=== PATIENT | male | born 1955 | race Caucasian/White ===

== ENCOUNTER → 2016-12-25 | Outpatient (CLI) | payer BC ==
--- NOTE | 2016-12-26 06:23 | PAP/PSG TECHNICIAN REPORT ---
[facility] Abstract Checker Polysomnogram Report Study name: None Report date: 12/26/2016 Study date: 12/25/2016 Referring Physician: Aury Weiner PA-C Name: EMMETT DEL CASTILLO Interpreting Physician: Derrek Greco D.O. Date of : 1955 Abstract Checker: Loco Muñoz RPSFELICITY. Sex: Male Age: 61 StudyType: PSG PAP Weight: 245 lbs Height: 61 years, Height 6' 0" BMI: 33.22 Medications: PRILOSEC OTC 20 MG, DULOXETINE HCL 60 MG, LISINOPRIL 20-25 MG, METOPROLOL SUCCINATE ER 25 MG, ASPIRIN 81 MG, FISH OIL 1200 MG Patient History PATIENT HAD A SLEEP STUDY DONE IN FEBRUARY OF 2013. HE WAS POSITIVE FOR MODERATE HAYDE. HE CONTINUES TO WEAR CPAP BUT HAS BEEN FEELING TIRED AND LOW ON ENERGY. HE IS HERE TODAY FOR AN UPDATE ON HIS PRESSURE. ESS = 8 RM 7 Parameters Monitored NPSG: E1-M2, E2-M1, Fp1-M2, Fp2-M1, F3-M2, F4-M2, F4-M1, C3-M2, C4-M2, C4-M1, O1-M2, O2-M2, O2-M1, T3-M2, T4-M1, P3-M2, P4-M1, CHIN1, CHIN2, HR, EKG, Legs, PFLOW, SNOR, FLOW, CFLOW, Tidal Volume, THOR, ABDO, SpO2, PLTH, CPRESS, ETCO2 Wave, ETCO2, pH Sleep Architecture Sleep Stages Time at Lights Off 9:53:00 PM STAGES Time (min.) TST (%) Time at Lights On 5:38:30 AM Wake 51.0 -- Total Recording Time (TRT) 465.50 min. N1 22.0 5 Total Sleep Period (TSP) 454.5 min. N2 252.0 61 Total Sleep Time (TST) 414.5min. N3 51.5 12 Awake Time 51.0 min. REM 89.0 21 Wake after Sleep Onset 41.0 min. Sleep Efficiency (SE) 89 % Sleep Onset Latency (TRUE) 10.0 min. Number of Stage 1 Shifts None Awakenings 13 Stage Changes 62 Number of REM periods 5 REM 89.0 21 REM Latency 85.0 min. NREM 325.5 79 Body Position Analysis Supine Right Left Side Prone Vertical Total Sleep Time (min.) 395.7 64.6 0.0 64.56 0.0 0.0 Total Sleep Time (%) 84% 16% 0% 16 0% N/A% Total Sleep Time REM (min.) 89.0 0.0 0.0 None 0.0 0.0 Total Sleep Time NREM (min.) 260.9 64.6 0.0 None 0.0 0.0 Intermittent Wake (min.) 45.7 5.3 0.0 None 0.0 0.0 Total Sleep Period (%) 85% None None None None None Arousals Myoclonus (PLM) * Events Count Index Events Count Index Spontaneous 19 3 Events Awake (PLMW) 31 36.5 Respiratory 2 0.3 Events Asleep w/ Arousal (PLMA) 4 0.6 PLM 4 1 Events Asleep w/o Arousal (PLMS) 253 36.6 Snoring 2 0 Total Asleep 257 37.2 Total 27 4 Total 288 37 Respiratory Analysis * CA OA MA CH H RERA Total Count 0 0 0 0 2 2 2 Index 0.0 0.0 0.0 0 0.3 0 0.6 Mean Duration 0.0 0.0 0.0 0.00 22.0 17.8 19.9 Longest Duration 0.0 0.0 0.0 0.00 0.0 18.1 23.3 Respiratory Event Summary Total Supine ~Supine Right Left Prone REM NREM Apneas Count 0 0 0 0 N/A N/A 0 0 Index 0.0 0 0 0.0 N/A N/A 0 0 Hypopneas (4% Desat) Count 2 2 0 0 N/A N/A 0 2 Index 0.3 0.3 0 0.0 N/A N/A 0.0 0.4 Apneas & All Hypopneas Count 2 2 0 0 N/A N/A 0 2 Index 0.3 0 0 0 N/A N/A 0.0 0.4 Respiratory Events (Product Safety Officer+All Hyp+RERA) Count 2 4 0 0 N/A N/A 0 2 Index 0.6 1 0 0.0 N/A N/A 0.0 0.7 Respiratory Related Arousal Count 2 4 0 0 N/A N/A 0 2 Index 0.3 0 0 0 N/A N/A 0 0 Snoring Analysis Supine Right Left Prone REM NREM Total Snore duration 1.0 min Snores count 31 2 N/A N/A 4 29 33 Snore mean duration 1.8 Sec Snores index 5 2 N/A N/A 2.7 5.3 4.8 TST with snoring (%) 0.2% Desaturation Event Summary: Minimum %SpO2 Event Count Mean/Min/Max Duration(sec.) Desaturation Index % Time In Bed > 90 3 21.8 / 10.8 / 33.6 0.4 99.9 86 - 90 1 21.0 / 21.0 / 21.0 88.9 0.1 81 - 85 0 N/A 0.0 0.0 76 - 80 0 N/A 0.0 0.0 71 - 75 0 N/A 0.0 0.0 66 - 70 0 N/A 0.0 0.0 61 - 65 0 N/A 0.0 0.0 56 - 60 0 N/A 0.0 0.0 51 - 55 0 N/A 0.0 0.0 < 50 0 N/A 0.0 0.0 Total REM NREM Awake <50% 0.0 min. 0.0 min. 0.0 min. 0.0 min. 51 - 60% 0.0 min. 0.0 min. 0.0 min. 0.0 min. 61 - 70% 0.0 min. 0.0 min. 0.0 min. 0.0 min. 71 - 80% 0.0 min. 0.0 min. 0.0 min. 0.0 min. 81 - 90% 0.7 min. 0.0 min. 0.7 min. 0.0 min. 91 - 100% 463.6 min. 89.0 min. 324.8 min. 49.8 min. Average 95 95 95 96 Minimum SpO2 89 92 89 91 Desaturation Event Index 0.4 0.7 0.4 0.0 # Desat. Events below 89% N/A N/A N/A N/A Time(%) with Saturation below 89% 0.0 0.0 0.0 0.0 Time(min.) with Saturation below 89% 0.0 0.0 0.0 0.0 Time (mins) REM (mins) NREM (mins) % of TST SpO2 Below 90% 2 N/A N2 0.1 SpO2 Below 88% 0 0 0 0 Heart Rate Analysis Min (bpm) Max (bpm) Average (bpm) Awake 44 93 55 NREM 44 76 51 REM 43 70 53 Overall 43 76 51 Supplemental O2 Values Minimum O2 level: None Value Start Time End Time Abstract Checker Comments Mr. Del Castillo slept in the right and supine positions. No cardiac arrhythmia noted. Leg movements noted. No bruxism noted. CPAP was initiated at +4 CMH2O and up-titrated to an optimal level of +8 CMH2O cflex 2, which nearly eliminated all respiratory events and snoring. A Resmed Packer Fx nasal pillow size medium mask was used during titration Mr. Del Castillo awoke to use the restroom 0 times during the night. Mr. Del Castillo stated I slept as well as I do when I am in my own bed. The final report will be interpreted and signed by a sleep physician. The completed physician report will then be placed in the patient medical record. Therapy Event: Therapy (cm H20) 5 6 7 8 Total Time at Pressure (min.) 20.9 44.7 323.5 76.3 TST at Pressure (min.) 10.4 44.7 286.0 73.3 # Periods 1 1 1 1 Sleep Onset (min.) 10.0 0.0 0.0 0.0 REM Onset (min.) N/A N/A 29.4 58.8 Sleep Efficiency % 49 100 88 96 Wakefulness (%) 50.3 0.0 11.6 3.9 Wakefulness (min.) 10.5 0.0 37.5 3.0 NREM 1 (%) 19.2 0.0 4.5 4.6 NREM 1 (min.) 4.0 0.0 14.5 3.5 NREM 2 (%) 30.5 38.5 54.1 69.9 NREM 2 (min.) 6.4 17.2 175.0 53.3 NREM 3 (%) 0.0 61.5 7.4 0.0 NREM 3 (min.) 0.0 27.5 24.0 0.0 REM (%) 0.0 0.0 22.4 21.6 REM (min.) 0.0 0.0 72.5 16.5 # Arousals 4 0 21 2 Arousal Index 23.2 0.0 4.4 1.6 # Snore 6 9 18 0 Snore Index 34.7 12.1 3.8 0.0 AHI 11.6 0.0 0.0 0.0 AHI Supine 11.6 0.0 0.0 0.0 AHI Non-Supine N/A N/A 0.0 N/A NREM AHI 11.6 0.0 0.0 0.0 REM AHI N/A N/A 0.0 0.0 RDI 11.6 0.0 0.4 0.0 # Obstructive 0 0 0 0 # Central Ap 0 0 0 0 # Mixed 0 0 0 0 # Hypopneas 2 0 0 0 RERAS 0 0 2 0 Total Respiratory Events 2 0 2 0 Time Below SpO2 89.00% (min.) 0.0 0.0 0.0 0.0 Mean NREM SpO2 (%) 93 94 95 95 Mean REM SpO2 (%) N/A N/A 95 95 Mean Sleep SpO2 (%) 93 94 95 95 Min NREM SpO2 (%) 89 91 93 94 Min REM SpO2 (%) N/A N/A 92 93 Position Supine (min.) 10.4 44.7 221.5 73.3 Position Non-supine (min.) 0.0 0.0 64.6 0.0 LM Index Sleep 5.8 21.5 49.7 2.5 LM Index NREM 5.8 21.5 64.1 1.1 LM Index REM N/A N/A 7.4 7.3 Mean Heart Rate (bpm) 53 51 51 50 Min Heart Rate (bpm) 48 47 43 45
--- NOTE | 2016-12-27 17:45 | Sleep Study ---
Sleep Study Report Date of Service: 12/25/2016 Sleep Study Report Clinical data: The patient is a 61-year-old male with a history of obstructive sleep apnea which was moderate and diagnosed approximately 2012. He has been on nasal CPAP therapy. He has been feeling tired and low on energy. His Vaughan score is 8. He is referred for a CPAP retitration. Sleep architecture: The total sleep period is 454.5 minutes. Total sleep time is 414.5 minutes. Sleep efficiency was normal at 89 percent. The sleep latency was 10 minutes. Wake after sleep onset was 41 minutes. REM latency was normal at 85 minutes. Sleep consisted of stage N1 5 percent, stage N2 61 percent, stage N3 12 percent , and stage REM 21 percent. Arousal data: Patient had a total of 27 arousals including 19 spontaneous arousals, 2 respiratory arousals, 4 PLM arousals, and 2 snoring arousals. The arousal index is 4. PLM data: The patient had a total of 257 periodic limb movements of sleep for a PLM index of 37.2. There were 4 arousals for a PLM arousal index of 0.6. EKG: The cardiac rates ranged from 43 to 76 beats per minute. Average heart rate was 51 beats per minute. No arrhythmia was noted. Respiratory data: The patient's nocturnal events were treated with nasal CPAP which was titrated to a final pressure of 8 centimeters. The patient had a total of 2 respiratory events, both of which were hypopneas. Hypopneas were scored according to the 4 percent desaturation rule. Mean duration of the hypopneas was 22 seconds. The apnea-hypopnea index was 0.3. There were also 2 RERAS. Oximetry data: The average saturation was 95 percent. The minimum saturation was 89 percent. There was no time with saturations less than 89 percent. [place] Reverse Winder's comments: Patient slept in the right and supine positions. No cardiac arrhythmia noted. Leg movements noted. No bruxism noted. CPAP was initiated at 4 centimeters and up titrated to an optimal level of 8 centimeters with C flex 2. This nearly eliminated all respiratory events and snoring. A [employer] Packer FX nasal pillow size medium was used during titration. Impressions: 1. Obstructive sleep apnea-resolved with nasal CPAP at 8 centimeters 2. Periodic limb movement disorder Comments: The patient did well with nasal CPAP. His sleep efficiency and sleep architecture were not significantly abnormal. It is notable he did spend 85 percent of the night in the supine position. He had relatively few arousals. He had frequent periodic limb movements but with few arousals. It is unknown if he clinically has restless leg syndrome. His oxygenation was normal. At the final pressure of 8 centimeters the patient's apnea-hypopnea index was 0. Recommendations: 1. It is advised that the patient has nasal CPAP set at 8 centimeters with C flex 2 2. This study was done with a ResMed Packer FX nasal pillow size medium. He did well with this. If he needs a new mask, this 1 could be considered. 3. Clinical correlation is required to determine if the patient has clinical restless leg syndrome that may need pharmacologic therapy. A serum ferritin level would be advised to evaluate for iron deficiency as a contributing factor to the limb movements. 4. Weight loss is advised in light of the elevation of body mass index at 33.22. 5. It is suggested that if possible the patient avoid sleeping in the supine position. Typically there is more apnea when supine. 6. Patient should be seen approximately 2 months after the pressure is changed. Compliance data should be obtained which would also hopefully show if the patient is still having respiratory events or not. Copies To 1: Derrek Greco DO; Aury Weiner PAC
== END | disposition home or self-care (01) ==
LOC: C.NEUR 20:00
PROVIDERS: ATTEND Physician Assistant Medical
DX: G47.30 Sleep apnea, unspecified (principal)

== ENCOUNTER → 2017-02-17 | Outpatient (CLI) | payer BC ==
[2017-02-17 09:59] LABS: BASO % 0.8 %; BASO ABS # 0.04 K/uL (0-0.2); COMPLETE YES; EOS % 1.1 %; HEMATOCRIT 37.5 % (42-52); IG% 0.2 %; LYMPH % 42.9 %; LYMPH ABS # 2.25 K/uL (1.2-3.4); MEAN CELL VOLUME 92.8 fL (80-100); MEAN CORPUSCULAR HEMOGLOBIN 31.4 pg (25-34); MEAN CORPUSCULAR HGB CONC 33.9 g/dl (32-36); MEAN PLATELET VOLUME 10.8 fL (7.4-10.4); MONO % 15.4 %; NEUT % 39.6 %; PLATELET COUNT 264 K/uL (130-400); RED BLOOD COUNT 4.04 M/uL (4.7-6.1); WHITE BLOOD COUNT 5.25 K/uL (4.8-10.8)
[2017-02-17 10:06] LABS: ALT/SGPT 32 U/L (12-78); AST/SGOT 23 U/L (15-37); BLOOD UREA NITROGEN 19 mg/dl (7-18); CALCIUM 9.2 mg/dl (8.5-10.1); CARBON DIOXIDE 27 mmol/L (21-32); CHLORIDE 105 mmol/L (98-107); CHOLESTEROL 190 mg/dl (0-200); CREATININE 0.78 mg/dl (0.60-1.40); GLUCOSE 93 mg/dl (70-99); SODIUM 139 mmol/L (136-145); TRIGLYCERIDES 97 mg/dl (0-150); VERY LOW DENSITY LIPOPROT CALC 19 mg/dl
[2017-02-17 10:11] LABS: ALB/GLOB RATIO 1.1 (0.9-2); ALKALINE PHOSPHATASE 31 U/L (45-117); HDL CHOLESTEROL 38 mg/dl; LDL CHOLESTEROL CALCULATED 133 mg/dl; PROSTATE SPECIFIC ANTIGEN 0.893 ng/ml (0.000-4.000)
[2017-02-17 11:49] LABS: ESTIMATED AVERAGE GLUCOSE 111 mg/dl; HA1C FLAG Normal (Normal)
--- NOTE | 2017-02-27 10:24 | CODING QUERY MEDICAL NECESSITY ---
CQSUPPORTING DIAGNOSIS NEEDED A supporting diagnosis is required for the test/procedure performed on this patient in order for us to be reimbursed by the patient's insurance. Please provide a supporting diagnosis for the following test/procedure listed below next to the test name along with your signature. *If there is no additional diagnosis for this patient that would support the following test/procedure please document that below next to the test/procedure. Test(s)/Procedure(s) that require a supporting diagnosis: DOS 02/17/17 PROSTATE SPECIFIC TEST Provider Signature: Date: Thank you Mallorie Bermeo Zostel Information Management Once completed, please kindly fax back to [phone] For questions please call [phone]
== END | disposition home or self-care (01) ==
LOC: C.LAB 07:07
PROVIDERS: ATTEND Physician Assistant Medical
DX: Z00.00 Encounter for general adult medical examination without abnormal findings (principal); I10 Essential (primary) hypertension; E78.5 Hyperlipidemia, unspecified; R73.9 Hyperglycemia, unspecified

== ENCOUNTER → 2017-06-22 | Outpatient (CLI) | payer OTHER ==
[2017-06-22 09:32] LABS: BASO % 0.9 %; BASO ABS # 0.05 K/uL (0-0.2); EOS % 1.9 %; EOS ABS # 0.11 K/uL (0-0.5); HEMATOCRIT 38.8 % (42-52); HEMOGLOBIN 13.3 g/dL (14.0-18.0); IG# 0.05 K/uL (0.00-0.02); LYMPH ABS # 2.63 K/uL (1.2-3.4); MEAN CELL VOLUME 90.4 fL (80-100); MEAN CORPUSCULAR HGB CONC 34.3 g/dl (32-36); MEAN PLATELET VOLUME 10.2 fL (7.4-10.4); NEUT % 39.3 %; NEUT ABS # 2.31 K/uL (1.4-6.5); PLATELET COUNT 330 K/uL (130-400); RED CELL DISTRIBUTION WIDTH CV 13.5 % (11.5-14.5); RED CELL DISTRIBUTION WIDTH SD 44.6 fL (36.4-46.3); WHITE BLOOD COUNT 5.85 K/uL (4.8-10.8)
[2017-06-22 09:44] LABS: ALBUMIN 3.7 gm/dl (3.4-5.0); ALT/SGPT 43 U/L (12-78); AST/SGOT 24 U/L (15-37); BLOOD UREA NITROGEN 20 mg/dl (7-18); CARBON DIOXIDE 29 mmol/L (21-32); CREATININE 0.96 mg/dl (0.60-1.40); GLUCOSE 138 mg/dl (70-99); POTASSIUM 3.9 mmol/L (3.5-5.1); SODIUM 138 mmol/L (136-145)
[2017-06-22 09:47] LABS: ALKALINE PHOSPHATASE 46 U/L (45-117); TOTAL PROTEIN 8.1 gm/dl (6.4-8.2)
== END | disposition home or self-care (01) ==
LOC: C.LAB 07:14
PROVIDERS: ATTEND Physician Assistant Medical
DX: R53.83 Other fatigue (principal); J32.0 Chronic maxillary sinusitis; I10 Essential (primary) hypertension; E78.5 Hyperlipidemia, unspecified; R73.9 Hyperglycemia, unspecified

== ENCOUNTER → 2017-06-27 | Outpatient (CLI) | payer OTHER ==
--- NOTE | 2017-06-27 09:31 | DIAGNOSTIC IMAGING REPORT ---
SINUSES-MAXILLOFACIAL W/O CLINICAL HISTORY: 61 years-old Male presenting with J32.0 Left maxillary sinusitiS. TECHNIQUE: Multidetector CT of the sinuses was performed without the use of intravenous contrast. IV contrast: None. A dose lowering technique was used consistent with the principles of ALARA (as low as reasonably achievable). COMPARISON: None. CT DOSE (mGy.cm): The estimated cumulative dose is 281.23 mGycm. FINDINGS: Tick Sewer topogram: Unremarkable. Extensive mucosal thickening in the left maxillary sinus with aerated secretions. Minimal sclerosis of the left maxillary sinus jo relative to the right maxillary sinus. Trace mucosal thickening or fluid in the right maxillary sinus. Extensive left anterior ethmoid air cell opacification. This results in obstruction of the left nasal frontoethmoidal recess. The left ostiomeatal unit is also obstructed secondary to mucosal thickening. A Maria cell may be present on the left. The right ostiomeatal unit and right nasal frontoethmoidal recess are patent. The bony nasal septum demonstrates minimal rightward deviation with slight bridging to the left middle turbinate. No bony dehiscence of the optic canals. Questionable bony dehiscence in the left sphenoid sinus of the left carotid siphon (series 300 image 39). Orbits intact. Limited intracranial evaluation suggests chronic small vessel ischemic change. Remaining soft tissues of the face normal. IMPRESSION: 1. Findings suspicious for acute on chronic left maxillary sinusitis. Extensive mucosal thickening results in left nasofrontal ethmoidal recess and left ostiomeatal unit obstruction. 2. Limited anatomic variants as above. Electronically signed by: Yung Dunn M.D. 06/27/2017 9:29 AM Dictated Date/Time: 06/27/2017 9:23 AM
== END | disposition home or self-care (01) ==
LOC: C.CTS 09:02
PROVIDERS: ATTEND Physician Assistant Medical
DX: J32.0 Chronic maxillary sinusitis (principal)

== ENCOUNTER → 2017-07-10 | Outpatient (CLI) | payer OTHER ==
[~2017-07-10] MED LIST: ASPI81TA28 PO; CHOL2000 PO; DULO60CA44 PO; LSN/2025 PO; METO25TA4 PO; MILK175C3 PO; OMEG10007 PO; PYRI100T4 PO
[2017-07-10 09:30] LABS: HEMATOCRIT 36.9 % (42-52); HEMOGLOBIN 12.8 g/dL (14.0-18.0); MEAN CELL VOLUME 89.6 fL (80-100); MEAN CORPUSCULAR HEMOGLOBIN 31.1 pg (25-34); MEAN CORPUSCULAR HGB CONC 34.7 g/dl (32-36); MEAN PLATELET VOLUME 10.4 fL (7.4-10.4); PLATELET COUNT 219 K/uL (130-400); RED CELL DISTRIBUTION WIDTH CV 13.4 % (11.5-14.5); RED CELL DISTRIBUTION WIDTH SD 43.9 fL (36.4-46.3); WHITE BLOOD COUNT 3.88 K/uL (4.8-10.8)
[2017-07-10 09:51] LABS: PTT PATIENT 25.8 SECONDS (21.0-31.0)
== END | disposition home or self-care (01) ==
LOC: C.LAB 07:17
DX: Z01.818 Encounter for other preprocedural examination (principal)

== ENCOUNTER → 2017-07-17 | Day surgery (SDC) | payer OTHER ==
[2017-07-11 08:11] VITALS: Ht 185.4 cm; Wt 111.4 kg
[~2017-07-17] VITALS: Ht 185.4 cm; Wt 111.4 kg
[~2017-07-17] MED LIST changes: +ATROPINE SULFATE 0.1 MG/ML 5ML SYR IV PRN; +CEFAZOLIN 2000MG IV PUSH 15 ML IV SCH; +DEXAMETHASONE SOD INJ 4 MG/ML VIAL ONE; +EpHEDrine SULFATE INJ 50 MG/ML AMP IV PRN; +EpHEDrine SULFATE INJ 50 MG/ML AMP ONE; +EpINEphrine INJ 1MG/ML AMP 1 MG/ML AMP ONE; +FENTANYL CITRATE INJ 50 MCG/1 ML 2 ML VIAL IV PRN; +FENTANYL CITRATE INJ 50 MCG/1 ML 2 ML VIAL ONE; +GLYCOPYRROLATE INJ 0.2 MG/ML VIAL ONE; +HYDROCODONE/ACETAMIN 5/325MG TAB PO PRN; +LACTATED RINGER'S 1000ML 1,000 ML IV SCH; +LIDOCAINE 4% MPF SOAK 5 ML = 1 DOSE TOP ONE; +LIDOCAINE HCL 2% 2 ML VIAL (20MG/ML) ONE; +LIDOCAINE/EPINEPHRINE 1% 20 ML VIAL ONE; +MIDAZOLAM HCL 1 MG/ML 2ML VIAL ONE; +NEOSTIGMINE METHYLSULFATE 5 MG/5 ML SYR ONE; +ONDANSETRON INJ 2 MG/ML 2 ML VIAL IV PRN; +ONDANSETRON INJ 2 MG/ML 2 ML VIAL ONE; +OXYMETAZOLINE HCL 0.05% NA SPR 15 ML BTL PRN; +OXYMETAZOLINE HCL 0.05% NA SPR 15 ML BTL SCH; +PROPOFOL IV EMULSION 10 MG/ML 20 ML VIAL IV ONE; +SODIUM CHLORIDE 0.9% INJ 10 ML VIAL ONE
--- NOTE | 2017-07-17 11:33 | History & Physical Bridge - SC ---
H&P Re-Evaluation Bridge Note: I have examined the patient, reviewed the History & Physical and in the interval since the performance of the History & Physical I have noted the following changes of clinical significance: No changes noted
--- NOTE | 2017-07-17 12:57 | [facility] Operative Report ---
Operative Report Operative Date Jul 17, 2017. Pre-Operative Diagnosis Chronic Sinusitis Post-Operative Diagnosis Same Procedure(s) Performed Left Maxillary Antrostomy, Left Complete Ethmoidectomy Surgeon Dr. Long Bias Binding Cutter Surgeon(s) None Estimated Blood Loss 10 mL Findings 1. PURULENCE WITHIN LEFT MAXILLARY SINUS 2. SEVERE POLYPOID MUCOSAL THICKENING OF THE LEFT MAXILLARY AND ETHMOID SINUSES Specimens 1) Left Maxillary Sinus Purulence - for C&S, Gram stain A) Left Maxillary Sinus Contents Anesthesia Type General I attest to the content of the Intraoperative Record and any orders documented therein. Any exceptions are noted below.
--- NOTE | 2017-07-17 13:00 | Discharge Instructions ---
Discharge Instructions Date of Service Jul 17, 2017. Admission Reason for Admission: Chronic Sinusitis Discharge Discharge Diagnosis / Problem: SAME Discharge Goals Goal(s): Therapeutic intervention Activity Recommendations Activity Limitations: as noted below LIGHT ACTIVITY AND NO NOSE BLOWING FOR 2 WEEKS; NO DRIVING WHILE ON NORCO . Current Hospital Diet Patient's current hospital diet: Discharge Diet Recommended Diet: Regular Diet Procedures Procedures Performed: Left Maxillary Antrostomy, Left Complete Ethmoidectomy Pending Studies Studies pending at discharge: no Medical Emergencies . Who to Call and When: Medical Emergencies: If at any time you feel your situation is an emergency, please call 911 immediately. . Non-Emergent Contact Non-Emergency issues call your: Surgeon . . "Provider Documentation" section prepared by Tevin Long. . VTE Core Measure Inpt VTE Proph given/why not?: SCD's
--- NOTE | 2017-07-17 14:09 | Anesthesiology Progress Note ---
Anesthesia Post Op Note Date & Time Jul 17, 2017 at 14:09 Vital Signs Pain Intensity: 0 Vital Signs Past 12 Hours Date Time Temp Pulse Resp B/P (MAP) Pulse Ox O2 Delivery O2 Flow Rate FiO2 07/17/17 13:49 36.4 51 16 129/79 99 Room Air 07/17/17 13:46 129/79 07/17/17 13:46 129/79 07/17/17 13:43 48 7 07/17/17 13:43 48 7 93 07/17/17 13:43 48 7 07/17/17 13:43 48 7 93 07/17/17 13:41 127/75 07/17/17 13:41 127/75 07/17/17 13:38 54 15 07/17/17 13:38 53 15 97 07/17/17 13:38 54 15 07/17/17 13:38 53 15 97 07/17/17 13:37 70 14 97 07/17/17 13:37 65 14 07/17/17 13:36 138/78 07/17/17 13:32 47 13 98 07/17/17 13:32 47 13 07/17/17 13:31 135/81 07/17/17 13:27 47 15 98 07/17/17 13:27 47 15 07/17/17 13:26 138/90 07/17/17 13:22 52 15 98 07/17/17 13:22 52 15 07/17/17 13:21 146/78 07/17/17 13:17 52 20 99 07/17/17 13:17 52 20 07/17/17 13:16 135/78 07/17/17 13:12 60 20 07/17/17 13:12 61 20 99 07/17/17 13:11 62 20 151/87 98 07/17/17 13:11 62 20 07/17/17 13:07 155/93 07/17/17 13:07 36.1 73 20 155/93 97 Humidified Oxygen 8 Mask 07/17/17 10:08 36.8 64 18 142/92 (109) 96 Room Air Notes Mental Status: alert / awake / arousable, participated in evaluation Pt Amnestic to Procedure: Yes Nausea / Vomiting: adequately controlled Pain: adequately controlled Airway Patency, RR, SpO2: stable & adequate BP & HR: stable & adequate Hydration State: stable & adequate Anesthetic Complications: no major complications apparent
--- NOTE | 2017-07-17 14:17 | OPERATIVE REPORT ---
DATE OF OPERATION: 07/17/2017 PREOPERATIVE DIAGNOSIS: Left chronic sinusitis from an odontogenic source. POSTOPERATIVE DIAGNOSIS: Same. PROCEDURE: 1. Left maxillary antrostomy with tissue removal. 2. Left complete ethmoidectomy. SURGEON: Dr. Long. ANESTHESIA: General endotracheal. ESTIMATED BLOOD LOSS: 10 mL. FINDINGS: 1. Purulence within the left maxillary sinus. 2. Severe polypoid mucosal inflammation involving the left maxillary and ethmoid sinuses. SPECIMENS: 1. Left maxillary sinus purulence for Gram stain, culture and sensitivity. 2. Left maxillary sinus contents for permanent pathological assessment. COMPLICATIONS: None. INDICATIONS FOR THE PROCEDURE: The patient is a 61-year-old male who had recent dental implant and had to have that removed due to infectious complications. Despite numerous courses of antibiotics and steroids, he continued to have symptoms of chronic sinusitis and a CT scan of the sinuses revealed left maxillary and ethmoid sinusitis. He presents for the above-mentioned procedures on an outpatient elective basis. DESCRIPTION OF PROCEDURE: After informed consent had been obtained from the patient, the patient was wheeled to the operating room and placed on the operating table in the supine position. Monitors were placed. After induction of general endotracheal anesthesia, the patient was prepped in the usual fashion for endoscopic sinus surgery. Lidocaine and epinephrine pledget was then placed into the left middle meatus. After allowing adequate time for anesthesia and vasoconstriction, the pledget was removed and a [place] elevator was used to medialize the left middle turbinate. The left middle turbinate and uncinate process were injected with 1% lidocaine with 1:100,000 epinephrine. Lidocaine and epinephrine pledget was then placed into the left middle meatus. After allowing adequate time for anesthesia and vasoconstriction, left pledget was removed and an uncinatectomy was performed using a freer elevator straight Kraig-Cut forceps and powered instrumentation. The natural ostia of the left maxillary sinus was identified and this was enlarged anteriorly, inferiorly, and posteriorly using backbiting forceps and powered instrumentation. There was purulence within the left maxillary sinus which was suctioned and trapped with a Lukens tube and sent off for Gram stain, culture and sensitivity. Care was taken to evacuate all of the purulent material. There was severe polypoid mucosal inflammation involving the left maxillary sinus and it almost had a papillomatous appearance to it and therefore biopsies of the left maxillary sinus contents were taken and sent off for permanent pathological assessment. A complete ethmoidectomy was then performed using powered instrumentation. The left nasal cavity and nasopharynx were suctioned as was the maxillary and ethmoid sinuses. Merogel was then placed into the left ethmoid sinus and middle meatus. An orogastric tube was placed and the stomach was suctioned free of air and stomach contents. This marked the end of the case. The patient tolerated the procedure well. There were no apparent complications. The patient was extubated and transferred to the recovery room in stable condition. I attest to the content of the Intraoperative Record and any orders documented therein. Any exception s are noted below.
[2017-07-17 14:25] VITALS: BP 126/79; PULSE 46; O2SAT 96
== END | disposition home or self-care (01) ==
LOC: X.SURG 09:23
DX: J32.9 Chronic sinusitis, unspecified (principal); J33.8 Other polyp of sinus; G47.33 Obstructive sleep apnea (adult) (pediatric); Z99.89 Dependence on other enabling machines and devices; I10 Essential (primary) hypertension; E78.5 Hyperlipidemia, unspecified; E66.9 Obesity, unspecified; Z68.32 Body mass index [BMI] 32.0-32.9, adult

== ENCOUNTER → 2018-01-10 | Outpatient (CLI) | payer OTHER ==
[~2018-01-10] MED LIST changes: -ASPI81TA28 PO; -ATROPINE SULFATE 0.1 MG/ML 5ML SYR IV PRN; -CEFAZOLIN 2000MG IV PUSH 15 ML IV SCH; -DEXAMETHASONE SOD INJ 4 MG/ML VIAL ONE; -EpHEDrine SULFATE INJ 50 MG/ML AMP IV PRN; -EpHEDrine SULFATE INJ 50 MG/ML AMP ONE; -EpINEphrine INJ 1MG/ML AMP 1 MG/ML AMP ONE; -FENTANYL CITRATE INJ 50 MCG/1 ML 2 ML VIAL IV PRN; -FENTANYL CITRATE INJ 50 MCG/1 ML 2 ML VIAL ONE; -GLYCOPYRROLATE INJ 0.2 MG/ML VIAL ONE; -HYDROCODONE/ACETAMIN 5/325MG TAB PO PRN; -LACTATED RINGER'S 1000ML 1,000 ML IV SCH; -LIDOCAINE 4% MPF SOAK 5 ML = 1 DOSE TOP ONE; -LIDOCAINE HCL 2% 2 ML VIAL (20MG/ML) ONE; -LIDOCAINE/EPINEPHRINE 1% 20 ML VIAL ONE; +LISI20TA11 PO; -LSN/2025 PO; -MIDAZOLAM HCL 1 MG/ML 2ML VIAL ONE; -NEOSTIGMINE METHYLSULFATE 5 MG/5 ML SYR ONE; -ONDANSETRON INJ 2 MG/ML 2 ML VIAL IV PRN; -ONDANSETRON INJ 2 MG/ML 2 ML VIAL ONE; -OXYMETAZOLINE HCL 0.05% NA SPR 15 ML BTL PRN; -OXYMETAZOLINE HCL 0.05% NA SPR 15 ML BTL SCH; -PROPOFOL IV EMULSION 10 MG/ML 20 ML VIAL IV ONE; -SODIUM CHLORIDE 0.9% INJ 10 ML VIAL ONE
--- NOTE | 2018-01-10 14:58 | DIAGNOSTIC IMAGING REPORT ---
LUMBAR SPINE W/O CONTRAST HISTORY: Pain. Neuropathy. M54.5 Low back painM54.16 Right lumbar [id number] TECHNIQUE: Multiplanar multisequence MRI of the lumbar spine was performed without the use of contrast. COMPARISON: None. FINDINGS: For the purpose of the report the L5-S1 disc space will be located on axial image 28 of 30. Moderate degenerative disc change throughout. Bulging disc components at virtually all levels of lumbar spine. T12-L1: Mild broad-based disc herniation. Minimal impact anterior thecal sac. L1-L2: Broad-based bulging disc. Mild impact anterior thecal sac. Minimal narrowing left neuroforamina. L2-L3: Broad-based disc herniation with moderate impact anterior aspect thecal sac. Minimal narrowing of the neuroforamina bilaterally. L3-L4: Multifactorial narrowing of spinal canal considered significant. Significant narrowing of the neuroforamina bilaterally. Extruded disc fragment extending superiorly from the L3-L4 level immediately posterior to the right posterior margin of L3. This creates significant narrowing of the right neuroforamina and considerable focal deformity of the thecal sac. L4-L5: Mild broad-based disc herniation. Moderate impact anterior thecal sac. Mild narrowing neuroforamina bilaterally. L5-S1: Mild central disc bulge. Minimal impact anterior thecal sac. IMPRESSION: 1. Significant multilevel degenerative disc change. 2. Multifactorial narrowing of the spinal canal L3-L4 with extruded disc fragment extending posterior to the L3 vertebral body on the right. 3. Bulging disc at all additional levels with mild to moderate impact upon the anterior spinal canal. The above report was generated using voice recognition software. It may contain grammatical, syntax or spelling errors. Electronically signed by: Tan Centeno M.D. 01/10/2018 2:56 PM Dictated Date/Time: 01/10/2018 2:50 PM
== END | disposition home or self-care (01) ==
LOC: C.MRIBC 13:51
PROVIDERS: ATTEND Physician Assistant Medical
DX: M54.16 Radiculopathy, lumbar region (principal); M99.73 Connective tissue and disc stenosis of intervertebral foramina of lumbar region